=== PATIENT | male | born 1980 | race Caucasian/White ===

== ENCOUNTER 2021-06-05 10:08 | Inpatient (IN) ==
[2021-06-05 10:38] LABS: Basophils # 0.1 K/mcL (0.0-0.2); Basophils % 0.4 %; Eosinophils # 0.1 K/mcL (0.0-0.6); Eosinophils % 0.4 %; Hematocrit 42.1 % (37.5-50.1); Hemoglobin 13.8 g/dL (12.9-16.9); Immature Granulocytes % 0.5 % (0-4); Lymphocytes # 2.2 K/mcL (0.6-4.6); Lymphocytes % 11.9 %; Mean Corpuscular HGB Conc 32.8 g/dL (31.6-35.5); Mean Corpuscular Hemoglobin 30.7 pg (28.0-33.3); Mean Corpuscular Volume 93.8 fL (83.0-100.0); Mean Platelet Volume 9.7 fL (9.4-12.4); Monocytes % 10.9 %; Neutrophils # 13.7 K/mcL (1.6-8.9); Platelet Count 417 K/mcL (140-400); Red Blood Count 4.49 M/mcL (4.19-5.50); Red Cell Distribution Width 14.6 % (11.5-14.5); Segmented Neutrophils % 75.9 %; White Blood Count 18.1 K/mcL (4.3-11.1)
[2021-06-05 11:39] LABS: Acetaminophen 27 mcg/mL (10-20); BUN/Creatinine Ratio 32 (6-26); Blood Urea Nitrogen 41 mg/dL (6-20); Calcium 10.3 mg/dL (8.6-10.3); Carbon Dioxide 19 mEq/L (23-29); Chloride 106 mEq/L (98-107); Chol/HDL Ratio 3.8 (0-4.9); Cholesterol 195 mg/dL (< 200); Ethanol < 10 mg/dL (Less than 10); Glucose 102 mg/dL (70-105); HDL Cholesterol 52 mg/dL (40-59); LDL Cholesterol,Calculated 127 mg/dL (< 100); Osmolality,Calculated 290 (280-300); Potassium 3.9 mEq/L (3.5-5.1); Salicylate < 2.5 mg/dL (15.0-30.0); Sodium 135 mEq/L (136-145); Triglycerides 79 mg/dL (< 150); eGFR For African Americans > 60 (> 60); eGFR For Non-African Americans > 60 (> 60)
[2021-06-05] MEDS ORDERED: ACETYLCYSTEINE IVC ONE (11:51)
[2021-06-05] MEDS ORDERED: WATER IVC ONE (11:51)
[2021-06-05] MEDS ORDERED: D5 IVC ONE (11:51)
[2021-06-05 12:33] LABS: Bilirubin,Urine Negative (Negative); Blood,Urine Large (Negative); Clarity,Urine Clear (Clear); Color,Urine Yellow (Yellow); Glucose,Urine (UA) Normal (Normal); Ketones,Urine 40 mg/dL (Negative); Leukocyte Esterase,Urine Negative (Negative); Nitrite,Urine Negative (Negative); Protein,Urine 100 mg/dL (Neg-Trace); Specific Gravity,Urine >= 1.030 (1.010-1.025); Urobilinogen,Urine Normal (Normal)
[2021-06-05 12:36] LABS: RBC,Urine 15-30 per hpf (0-3)
[2021-06-05 12:56] LABS: Alanine Aminotransferase 43 Units/L (7-52); Albumin 4.8 g/dL (3.5-5.7); Albumin/Globulin Ratio 1.3 (1.1-2.2); Alkaline Phosphatase 69 Units/L (34-104); Aspartate Amino Transferase 77 Units/L (13-39); Bilirubin,Direct 0.1 mg/dL (0.0-0.2); Bilirubin,Indirect 0.6 mg/dL (0.0-1.0); Bilirubin,Total 0.7 mg/dL (0.3-1.0); Globulin 3.6 g/dL (2.4-3.5); Total Protein 8.4 g/dL (6.4-8.9)
[2021-06-05 12:57] LABS: Amphetamine Screen,Urine Positive ng/mL (Cutoff=1000); Barbiturate Screen,Urine Negative ng/mL (Cutoff=200); Benzodiazepines Screen,Urine Negative ng/mL (Cutoff=200); Cannabinoid Screen,Urine Positive ng/mL (Cutoff = 50); Cocaine Screen,Urine Negative ng/mL (Cutoff= 300); Opiate Screen,Urine Negative ng/mL (Cutoff=300); Phencyclidine Screen,Urine Negative ng/mL (Cutoff=25)
[2021-06-05] MEDS ORDERED: Ibuprofen 400 MG TABLET PO PRN (14:08)
[2021-06-05] MEDS ORDERED: Ondansetron 4 MG/2 ML VIAL IVP PRN (14:08)
[2021-06-05] MEDS ORDERED: Naloxone 0.4 MG/ML INJ IVP PRN (14:08)
[2021-06-05] MEDS ORDERED: Isovue-370 500 ML BOTTLE IVP ONE (14:46)
[2021-06-05] MEDS ORDERED: Acetylcysteine 3,900 MG in D5% in Water 500 ML IVC ONE (15:00)
[2021-06-05 15:57] LABS: Estimated Average Glucose 120 mg/dl; Hemoglobin A1C 5.8 %
[2021-06-05] MEDS: 0.9 % Sodium Chloride 1,000 ML IVC SCH (18:29)
[2021-06-05] MEDS: Piperacillin/Tazobactam 3.375 GM in 0.9 % Sodium Chloride Mini Bag 100 ML IVPB SCH (18:29)
[2021-06-05] MEDS ORDERED: Acetylcysteine 7,700 MG in D5% in Water 1,000 ML IVC ONE (19:10)
[2021-06-05] MEDS: Gabapentin 400 MG CAPSULE PO SCH (20:13)
[2021-06-05] MEDS: QUEtiapine Fumarate 300 MG TABLET PO SCH (20:14)
[2021-06-05 23:02] LABS: Albumin 4.3 g/dL (3.5-5.7); Albumin/Globulin Ratio 1.4 (1.1-2.2); Bilirubin,Direct 0.2 mg/dL (0.0-0.2); Bilirubin,Indirect 0.7 mg/dL (0.0-1.0); Bilirubin,Total 0.9 mg/dL (0.3-1.0); Globulin 3.1 g/dL (2.4-3.5); Total Protein 7.4 g/dL (6.4-8.9)
[2021-06-06] MEDS: 0.9 % Sodium Chloride 1,000 ML IVC SCH (02:29)
[2021-06-06 02:42] LABS: Basophils # 0.1 K/mcL (0.0-0.2); Basophils % 0.8 %; Eosinophils # 0.2 K/mcL (0.0-0.6); Eosinophils % 2.5 %; Hematocrit 37.3 % (37.5-50.1); Immature Granulocytes % 0.1 % (0-4); Lymphocytes # 2.5 K/mcL (0.6-4.6); Lymphocytes % 29.7 %; Mean Corpuscular HGB Conc 32.7 g/dL (31.6-35.5); Mean Corpuscular Hemoglobin 30.3 pg (28.0-33.3); Mean Corpuscular Volume 92.6 fL (83.0-100.0); Mean Platelet Volume 9.7 fL (9.4-12.4); Monocytes # 0.9 K/mcL (0.0-1.3); Monocytes % 10.7 %; Platelet Count 345 K/mcL (140-400); Red Blood Count 4.03 M/mcL (4.19-5.50); Red Cell Distribution Width 14.5 % (11.5-14.5); Segmented Neutrophils % 56.2 %
[2021-06-06 02:44] LABS: Hemoglobin 12.2 g/dL (12.9-16.9); Neutrophils # 4.7 K/mcL (1.6-8.9); White Blood Count 8.3 K/mcL (4.3-11.1)
[2021-06-06 03:09] LABS: Alanine Aminotransferase 43 Units/L (7-52); Albumin 4.2 g/dL (3.5-5.7); Albumin/Globulin Ratio 1.4 (1.1-2.2); Alkaline Phosphatase 55 Units/L (34-104); Aspartate Amino Transferase 77 Units/L (13-39); BUN/Creatinine Ratio 30 (6-26); Bilirubin,Direct 0.2 mg/dL (0.0-0.2); Bilirubin,Indirect 0.6 mg/dL (0.0-1.0); Bilirubin,Total 0.8 mg/dL (0.3-1.0); Blood Urea Nitrogen 23 mg/dL (6-20); Calcium 9.3 mg/dL (8.6-10.3); Carbon Dioxide 18 mEq/L (23-29); Chloride 112 mEq/L (98-107); Globulin 3.1 g/dL (2.4-3.5); Glucose 106 mg/dL (70-105); Osmolality,Calculated 290 (280-300); Potassium 3.6 mEq/L (3.5-5.1); Sodium 138 mEq/L (136-145); Total Protein 7.3 g/dL (6.4-8.9); eGFR For African Americans > 60 (> 60); eGFR For Non-African Americans > 60 (> 60)
[2021-06-06] MEDS: Piperacillin/Tazobactam 3.375 GM in 0.9 % Sodium Chloride Mini Bag 100 ML IVPB SCH ×3 (03:18→17:57)
[2021-06-06 03:31] LABS: Creatine Kinase 2605 Units/L (30-223)
[2021-06-06] MEDS: QUEtiapine Fumarate 100 MG TABLET PO SCH ×2 (07:33→15:10)
[2021-06-06] MEDS: lisinopriL 10 MG TABLET PO SCH (07:33)
[2021-06-06] MEDS: Gabapentin 400 MG CAPSULE PO SCH ×3 (07:34→21:23)
[2021-06-06] MEDS: BuPROPion XL (24 HR) 150 MG TABLET PO SCH (07:34)
[2021-06-06] MEDS: Ringers Solution, Lactated 1,000 ML IVC SCH ×2 (09:09→17:25)
[2021-06-06 14:12] LABS: Acetaminophen < 10 mcg/mL (10-20)
[2021-06-06] MEDS: *HR* OxyCODONE Immed Rel 5 MG TABLET PO PRN ×2 (15:10→21:28)
[2021-06-06] MEDS ORDERED: Gadolinium Contrast Agent (WT Based) IV PRN (17:30)
[2021-06-06] MEDS: QUEtiapine Fumarate 300 MG TABLET PO SCH (21:24)
[2021-06-07] MEDS: Ringers Solution, Lactated 1,000 ML IVC SCH ×3 (01:35→19:54)
[2021-06-07 02:43] LABS: Basophils # 0.1 K/mcL (0.0-0.2); Basophils % 0.8 %; Eosinophils # 0.2 K/mcL (0.0-0.6); Eosinophils % 2.5 %; Hematocrit 33.5 % (37.5-50.1); Hemoglobin 10.9 g/dL (12.9-16.9); Immature Granulocytes % 0.1 % (0-4); Lymphocytes # 2.7 K/mcL (0.6-4.6); Lymphocytes % 35.6 %; Mean Corpuscular HGB Conc 32.5 g/dL (31.6-35.5); Mean Corpuscular Hemoglobin 30.8 pg (28.0-33.3); Mean Corpuscular Volume 94.6 fL (83.0-100.0); Monocytes # 0.9 K/mcL (0.0-1.3); Neutrophils # 3.7 K/mcL (1.6-8.9); Platelet Count 305 K/mcL (140-400); Red Blood Count 3.54 M/mcL (4.19-5.50); Red Cell Distribution Width 14.7 % (11.5-14.5); White Blood Count 7.5 K/mcL (4.3-11.1)
[2021-06-07 03:02] LABS: Albumin 3.6 g/dL (3.5-5.7); Albumin/Globulin Ratio 1.3 (1.1-2.2); Bilirubin,Direct 0.1 mg/dL (0.0-0.2); Bilirubin,Indirect 0.3 mg/dL (0.0-1.0); Bilirubin,Total 0.4 mg/dL (0.3-1.0); Globulin 2.8 g/dL (2.4-3.5); Total Protein 6.4 g/dL (6.4-8.9)
[2021-06-07 03:03] LABS: BUN/Creatinine Ratio 30 (6-26); Blood Urea Nitrogen 22 mg/dL (6-20); Calcium 8.6 mg/dL (8.6-10.3); Carbon Dioxide 21 mEq/L (23-29); Chloride 115 mEq/L (98-107); Glucose 101 mg/dL (70-105); Magnesium 1.8 mg/dL (1.6-2.6); Osmolality,Calculated 291 (280-300); Potassium 3.9 mEq/L (3.5-5.1); Sodium 139 mEq/L (136-145); eGFR For African Americans > 60 (> 60); eGFR For Non-African Americans > 60 (> 60)
[2021-06-07] MEDS: Piperacillin/Tazobactam 3.375 GM in 0.9 % Sodium Chloride Mini Bag 100 ML IVPB SCH (03:43)
[2021-06-07] MEDS: QUEtiapine Fumarate 100 MG TABLET PO SCH ×3 (07:16→19:36)
[2021-06-07] MEDS: Gabapentin 400 MG CAPSULE PO SCH ×3 (07:16→19:35)
[2021-06-07] MEDS: lisinopriL 10 MG TABLET PO SCH (07:16)
[2021-06-07] MEDS: BuPROPion XL (24 HR) 150 MG TABLET PO SCH (07:16)
[2021-06-07] MEDS: *HR* OxyCODONE Immed Rel 5 MG TABLET PO PRN ×2 (07:18→19:36)
[2021-06-07] MEDS ORDERED: ALPRAZolam 1 MG TABLET PO ONE (09:00)
[2021-06-07] MEDS ORDERED: Nicotine 21 MG PATCH.TD24 TD SCH (09:00)
[2021-06-07] MEDS ORDERED: GADOBUTROL 30 MMOL/30 ML VIAL IVP ONE (09:32)
[2021-06-07] MEDS: Nicotine 21 MG PATCH.TD24 TD SCH (15:30)
[2021-06-07] MEDS: QUEtiapine Fumarate 300 MG TABLET PO SCH (19:36)
[2021-06-07] MEDS ORDERED: *HR* LORazepam 2 MG/ML VIAL IVP ONE (22:04)
[2021-06-08 01:40] LABS: Basophils # 0.1 K/mcL (0.0-0.2); Eosinophils # 0.2 K/mcL (0.0-0.6); Eosinophils % 2.7 %; Hematocrit 33.2 % (37.5-50.1); Hemoglobin 10.8 g/dL (12.9-16.9); Immature Granulocytes % 0.1 % (0-4); Lymphocytes # 2.4 K/mcL (0.6-4.6); Lymphocytes % 34.7 %; Mean Corpuscular HGB Conc 32.5 g/dL (31.6-35.5); Mean Corpuscular Hemoglobin 31.4 pg (28.0-33.3); Mean Corpuscular Volume 96.5 fL (83.0-100.0); Mean Platelet Volume 9.9 fL (9.4-12.4); Monocytes # 0.9 K/mcL (0.0-1.3); Monocytes % 12.9 %; Neutrophils # 3.4 K/mcL (1.6-8.9); Platelet Count 311 K/mcL (140-400); Red Blood Count 3.44 M/mcL (4.19-5.50); Red Cell Distribution Width 14.8 % (11.5-14.5); Segmented Neutrophils % 48.6 %; White Blood Count 6.9 K/mcL (4.3-11.1)
[2021-06-08 01:52] LABS: BUN/Creatinine Ratio 22 (6-26); Blood Urea Nitrogen 19 mg/dL (6-20); Calcium 9.3 mg/dL (8.6-10.3); Carbon Dioxide 28 mEq/L (23-29); Chloride 110 mEq/L (98-107); Glucose 128 mg/dL (70-105); Magnesium 1.8 mg/dL (1.6-2.6); Osmolality,Calculated 300 (280-300); Potassium 4.2 mEq/L (3.5-5.1); Sodium 143 mEq/L (136-145); eGFR For African Americans > 60 (> 60); eGFR For Non-African Americans > 60 (> 60)
[2021-06-08 01:53] LABS: Albumin 3.6 g/dL (3.5-5.7); Albumin/Globulin Ratio 1.2 (1.1-2.2); Bilirubin,Direct 0.1 mg/dL (0.0-0.2); Bilirubin,Indirect 0.2 mg/dL (0.0-1.0); Bilirubin,Total 0.3 mg/dL (0.3-1.0); Globulin 3.1 g/dL (2.4-3.5); Total Protein 6.7 g/dL (6.4-8.9)
[2021-06-08] MEDS: Ringers Solution, Lactated 1,000 ML IVC SCH ×2 (04:16→09:10)
[2021-06-08] MEDS: *HR* OxyCODONE Immed Rel 5 MG TABLET PO PRN (04:56)
[2021-06-08] MEDS ORDERED: *HR* Enoxaparin 40 MG/0.4 ML SYRINGE SQ SCH (06:00)
[2021-06-08 06:33] VITALS: BP 111/72; PULSE 80; TEMP 97.8; O2SAT 95
[2021-06-08] MEDS: lisinopriL 10 MG TABLET PO SCH (09:09)
[2021-06-08] MEDS: Gabapentin 400 MG CAPSULE PO SCH (09:09)
[2021-06-08] MEDS: QUEtiapine Fumarate 100 MG TABLET PO SCH (09:10)
[2021-06-08] MEDS: Nicotine 21 MG PATCH.TD24 TD SCH (09:10)
[2021-06-08] MEDS: BuPROPion XL (24 HR) 150 MG TABLET PO SCH (09:10)
== END 2021-06-08 10:21 | disposition home or self-care (01) | DRG 917 ==
LOC: EMEROOARM 10:08 → 2ANU 10:08 → SUATTDRO 13:48 → 2ANU 14:33
PROVIDERS: ADMIT Family Medicine; ATTEND Pharmacist